=== PATIENT | female | born 1965 | race Two or more races ===

== ENCOUNTER 2017-12-27 10:35 | Emergency (ER) | payer OTHER ==
[~2017-12-27] VITALS: Ht 157.5 cm; Wt 59.0 kg
== END 2017-12-27 13:17 | disposition home or self-care (01) ==
LOC: ER 10:35
DX: H81.13 Benign paroxysmal vertigo, bilateral (principal)

== ENCOUNTER → 2018-06-15 | Emergency (ER) | payer OTHER ==
[~2018-06-15] VITALS: Ht 160 cm; Wt 59.0 kg
[~2018-06-15] MED LIST: ADVIL100 M1
== END | disposition home or self-care (01) ==
LOC: ER 17:15
DX: A04.9 Bacterial intestinal infection, unspecified (principal); E86.0 Dehydration

== ENCOUNTER 2018-11-19 08:04 | Outpatient (CLI) | payer OTHER | END 2018-11-19 08:22 | disposition home or self-care (01) | LOC: LAB 08:04 | DX: K63.89 Other specified diseases of intestine (principal); Z13.9 Encounter for screening, unspecified ==

== ENCOUNTER 2019-02-21 10:09 | Outpatient (CLI) | payer OTHER | END 2019-02-21 10:11 | disposition home or self-care (01) | LOC: SONOGRAMA 10:09 | DX: R10.11 Right upper quadrant pain (principal) ==

== ENCOUNTER 2019-10-07 16:03 | Emergency (ER) | payer OTHER ==
[~2019-10-07] VITALS: Ht 157.5 cm; Wt 54.0 kg
== END 2019-10-07 16:41 | disposition home or self-care (01) ==
LOC: ER 16:03
DX: H11.31 Conjunctival hemorrhage, right eye (principal)

== ENCOUNTER 2020-04-06 06:59 | Outpatient (CLI) | payer OTHER | END 2020-04-06 07:24 | disposition home or self-care (01) | LOC: LAB 06:59 | PROVIDERS: ATTEND Obstetrics & Gynecology | DX: Z12.11 Encounter for screening for malignant neoplasm of colon (principal); D64.89 Other specified anemias; E03.8 Other specified hypothyroidism; N95.1 Menopausal and female climacteric states; I10 Essential (primary) hypertension; C51.8 Malignant neoplasm of overlapping sites of vulva; N30.00 Acute cystitis without hematuria; A64 Unspecified sexually transmitted disease; R97.8 Other abnormal tumor markers; R79.89 Other specified abnormal findings of blood chemistry; E55.9 Vitamin D deficiency, unspecified ==

== ENCOUNTER 2020-04-21 09:36 | Outpatient (CLI) | payer OTHER | END 2020-04-21 09:49 | disposition home or self-care (01) | LOC: LAB 09:36 | PROVIDERS: ATTEND Obstetrics & Gynecology | DX: E03.8 Other specified hypothyroidism (principal) ==

== ENCOUNTER 2020-04-21 10:27 | Outpatient (CLI) | payer OTHER | END 2020-04-21 10:39 | disposition home or self-care (01) | LOC: MAMO-SONO 10:27 | PROVIDERS: ATTEND Obstetrics & Gynecology | DX: Z12.31 Encounter for screening mammogram for malignant neoplasm of breast (principal); N60.11 Diffuse cystic mastopathy of right breast; N60.12 Diffuse cystic mastopathy of left breast ==